=== PATIENT | male | born 1955 | race African-American/Black ===

== ENCOUNTER 2019-01-08 17:50 | Inpatient (IN) | payer MEDICARE, MEDICAID ==
[~2019-01-08] VITALS: Ht 170.2 cm; Wt 65.3 kg
[2019-01-08] MEDS ORDERED: SODIUM CHLORIDE 0.9% 1,000 ML IV ONE (18:19)
[2019-01-08 19:15] LABS: BASOPHILS % 0.3 % (0.0-2.0); EOSINOPHILS % 0.3 % (0.0-5.0); HEMATOCRIT. 47.1 % (42.0-52.0); HEMOGLOBIN. 16.2 g/dL (14.0-18.0); LYMPHOCYTES % 13.4 % (20.0-50.0); MEAN CORPUSCULAR HEMOGLOBIN 31.5 pg (28.0-32.0); MEAN CORPUSCULAR VOLUME 91.4 fL (80.0-94.0); MONOCYTES % 10.3 % (2.0-8.0); NEUTROPHILS % 75.7 % (40.0-76.0); PLATELET 260 x1000/uL (130-400); RED BLOOD CELL COUNT 5.15 mill/uL (4.7-6.1); RED CELL DISTRIBUTION WIDTH 14.1 % (11.6-14.6)
[2019-01-08 19:17] LABS: CHLORIDE 105 mEq/L (98-107)
[2019-01-08 19:18] LABS: INR 1.1; PROTHROMBIN TIME 10.6 sec (9.1-11.1)
[2019-01-08 19:40] LABS: CLARITY URINE CLEAR (CLEAR); COLOR URINE YELLOW (YELLOW); KETONES URINE NEGATIVE (NEGATIVE); LEUKOCYTE ESTERASE URINE NEGATIVE (NEGATIVE); NITRITE URINE NEGATIVE (NEGATIVE); OCCULT BLOOD URINE NEGATIVE (NEGATIVE); PH URINE 7.5 (4.5-8.0); PROTEIN URINE NEGATIVE (NEGATIVE); SPECIFIC GRAVITY URINE 1.012 (1.005-1.030); UROBILINOGEN URINE 0.2 E.U./dL (0.2-1.0)
[2019-01-08] MEDS ORDERED: POTASSIUM CHLORIDE 20MEQ TABLET SR PO ONE (19:45)
[2019-01-08] MEDS ORDERED: CLONIDINE 0.1MG TABLET PO PRN (21:15)
[2019-01-08] MEDS ORDERED: DOCUSATE SODIUM 100MG CAPSULE PO PRN (21:15)
[2019-01-08] MEDS ORDERED: ACETAMINOPHEN 325MG TABLET PO PRN (21:15)
[2019-01-08] MEDS ORDERED: ZOLPIDEM TARTRATE 5MG TABLET PO PRN (21:15)
[2019-01-08] MEDS ORDERED: MAGNESIUM/ALUMINUM HYDROXIDE/SIMETHICONE 30ML UDC PO PRN (21:15)
[2019-01-08] MEDS ORDERED: NITROGLYCERIN 0.4MG TABLET SL SL PRN (21:15)
[2019-01-08] MEDS ORDERED: NA PHOS,M-B/NA PHOS,DI-BA ENEMA 118ML PR PRN (21:15)
[2019-01-08] MEDS ORDERED: POTASSIUM CHLORIDE 20MEQ TABLET SR PO NR (21:15)
[2019-01-08] MEDS ORDERED: IPRATROPIUM/ALBUTEROL 0.5-3(2.5)MG/3ML NEB INH PRN (21:15)
[2019-01-08] MEDS ORDERED: TRAMADOL 50MG TABLET PO PRN (21:15)
[2019-01-08] MEDS ORDERED: ONDANSETRON HCL 4MG/2ML INJ IV PRN (21:15)
[2019-01-08 22:01] LABS: ETHANOL BLOOD < 10 mg/dL
[2019-01-08 22:04] LABS: LDL CHOLESTEROL 79 mg/dL (5-100)
[2019-01-08 22:05] LABS: HDL CHOLESTEROL 59 mg/dL (40-59)
[2019-01-08 22:06] LABS: T4 FREE 1.05 ng/dL (0.76-1.46)
[2019-01-08] MEDS: SODIUM CHLORIDE 0.9% 1,000 ML IV SCH (22:29)
[2019-01-09 00:50] LABS: CREATINE KINASE 538 IU/L (39-308)
[2019-01-09 00:51] LABS: CREATINE KINASE MB FRACTION 7.1 ng/mL (0.5-3.6)
[2019-01-09 06:34] LABS: CREATINE KINASE 474 IU/L (39-308)
[2019-01-09 06:35] LABS: CREATINE KINASE MB FRACTION 5.5 ng/mL (0.5-3.6)
[2019-01-09 09:24] LABS: *BARBITURATES SCREEN URINE NEGATIVE (NEGATIVE); *BENZODIAZEPINES SCREEN URINE NEGATIVE (NEGATIVE); *COCAINE SCREEN URINE NEGATIVE (NEGATIVE)
[2019-01-09 09:25] LABS: CANNABINOID URINE SCREEN NEGATIVE (NEGATIVE); METHADONE URINE SCREEN NEGATIVE (NEGATIVE); OPIATES URINE SCREEN NEGATIVE (NEGATIVE); PHENCYCLIDINE URINE SCREEN NEGATIVE (NEGATIVE)
[2019-01-09 09:26] LABS: *AMPHETAMINES SCREEN URINE NEGATIVE (NEGATIVE)
[2019-01-09 09:40] VITALS: BP 116/83
[2019-01-09] MEDS: FAMOTIDINE 20MG TABLET PO SCH ×2 (13:15→21:40)
[2019-01-09] MEDS: ASPIRIN 325MG EC TABLET PO SCH (13:15)
[2019-01-09] MEDS: ENOXAPARIN 40MG/0.4ML SYR SUBCUT SCH ×2 (13:16→13:21)
[2019-01-09] MEDS: SODIUM CHLORIDE 0.9% 1,000 ML IV SCH (15:36)
[2019-01-09 15:44] VITALS: BP 116/83
[2019-01-09 16:00] VITALS: BP_SYST 103; BP_SYST 106; BP_SYST 128; BP_DIAS 77; BP_DIAS 82; BP_DIAS 97
[2019-01-09 20:00] VITALS: BP_SYST 115; BP_SYST 123; BP_SYST 143; BP_DIAS 105; BP_DIAS 74; BP_DIAS 81
[2019-01-09] MEDS: GUAIFENESIN 200MG/10ML SUGAR FREE UDC PO PRN (21:54)
[2019-01-10] VITALS: BP 119/76
[2019-01-10 04:16] VITALS: BP 107/68
[2019-01-10] MEDS: SODIUM CHLORIDE 0.9% 1,000 ML IV SCH ×2 (06:31→14:30)
[2019-01-10 08:00] VITALS: BP 122/79
[2019-01-10] MEDS: FAMOTIDINE 20MG TABLET PO SCH ×2 (09:13→21:03)
[2019-01-10] MEDS: ASPIRIN 325MG EC TABLET PO SCH (09:13)
[2019-01-10] MEDS: ENOXAPARIN 40MG/0.4ML SYR SUBCUT SCH (09:14)
[2019-01-10] MEDS: POLYVINYL ALCOHOL OPHTH DROPS 15ML BOTHEYE SCH ×2 (13:00→18:36)
[2019-01-10 16:56] VITALS: BP 104/66
[2019-01-10 17:45] LABS: C REACTIVE PROTEIN CARDIAC 3.8 mg/L (0.00-3.00)
[2019-01-10 17:49] LABS: CREATINE KINASE MB FRACTION 3.8 ng/mL (0.5-3.6)
[2019-01-10 20:00] VITALS: BP_SYST 121; BP_SYST 130; BP_SYST 141; BP_DIAS 77; BP_DIAS 96
[2019-01-10] MEDS: GUAIFENESIN 200MG/10ML SUGAR FREE UDC PO PRN (23:34)
[2019-01-11] VITALS (8 sets, daily range): BP systolic 99–141; BP diastolic 52–78
[2019-01-11] MEDS: SODIUM CHLORIDE 0.9% 1,000 ML IV SCH ×2 (05:06→17:10)
[2019-01-11] MEDS: ASPIRIN 325MG EC TABLET PO SCH (09:31)
[2019-01-11] MEDS: FAMOTIDINE 20MG TABLET PO SCH ×2 (09:31→21:47)
[2019-01-11] MEDS: POLYVINYL ALCOHOL OPHTH DROPS 15ML BOTHEYE SCH ×3 (09:32→18:08)
[2019-01-11] MEDS: ENOXAPARIN 40MG/0.4ML SYR SUBCUT SCH (09:33)
[2019-01-11] MEDS ORDERED: IOHEXOL-300 100 ML BOTTLE ONE (13:38)
[2019-01-11 15:43] LABS: T4 FREE 0.9 ng/dL (0.76-1.46)
[2019-01-11] MEDS: GUAIFENESIN 200MG/10ML SUGAR FREE UDC PO PRN (23:26)
[2019-01-12] VITALS (7 sets, daily range): BP systolic 96–132; BP diastolic 57–91
[2019-01-12] MEDS: SODIUM CHLORIDE 0.9% 1,000 ML IV SCH ×2 (05:29→17:46)
[2019-01-12] MEDS: GUAIFENESIN 200MG/10ML SUGAR FREE UDC PO PRN ×2 (08:24→20:59)
[2019-01-12] MEDS: ASPIRIN 325MG EC TABLET PO SCH (08:24)
[2019-01-12] MEDS: POLYVINYL ALCOHOL OPHTH DROPS 15ML BOTHEYE SCH ×3 (08:24→17:34)
[2019-01-12] MEDS: FAMOTIDINE 20MG TABLET PO SCH ×2 (08:24→20:59)
[2019-01-12] MEDS: ENOXAPARIN 40MG/0.4ML SYR SUBCUT SCH (10:19)
[2019-01-12] MEDS: NYSTATIN POWDER 15GM TOP SCH ×2 (13:20→17:35)
[2019-01-13 04:00] VITALS: BP_SYST 108; BP_SYST 120; BP_DIAS 74; BP_DIAS 81
[2019-01-13] MEDS: GUAIFENESIN 200MG/10ML SUGAR FREE UDC PO PRN ×2 (05:32→17:57)
[2019-01-13] MEDS: POLYVINYL ALCOHOL OPHTH DROPS 15ML BOTHEYE SCH ×3 (10:14→17:50)
[2019-01-13] MEDS: NYSTATIN POWDER 15GM TOP SCH ×3 (10:14→17:51)
[2019-01-13] MEDS: ASPIRIN 325MG EC TABLET PO SCH (10:14)
[2019-01-13] MEDS: FAMOTIDINE 20MG TABLET PO SCH ×2 (10:14→20:58)
[2019-01-13 11:04] LABS: CREATINE KINASE 200 IU/L (39-308)
[2019-01-13 11:11] VITALS: BP 104/71
[2019-01-13] MEDS: ENOXAPARIN 40MG/0.4ML SYR SUBCUT SCH (13:38)
[2019-01-13 20:00] VITALS: BP_SYST 110; BP_SYST 112; BP_SYST 122; BP_DIAS 74; BP_DIAS 82; BP_DIAS 85
[2019-01-13] MEDS: SODIUM CHLORIDE 0.9% 1,000 ML IV SCH (21:38)
[2019-01-14] VITALS: BP 105/73
[2019-01-14 04:00] VITALS: BP 96/60
[2019-01-14 08:00] VITALS: BP_SYST 105; BP_SYST 112; BP_SYST 128; BP_DIAS 75; BP_DIAS 83; BP_DIAS 93
[2019-01-14 12:00] VITALS: BP 115/70
[2019-01-14] MEDS: POLYVINYL ALCOHOL OPHTH DROPS 15ML BOTHEYE SCH ×3 (12:42→18:04)
[2019-01-14] MEDS: FAMOTIDINE 20MG TABLET PO SCH (12:42)
[2019-01-14] MEDS: ASPIRIN 325MG EC TABLET PO SCH (12:42)
[2019-01-14] MEDS: ENOXAPARIN 40MG/0.4ML SYR SUBCUT SCH (12:43)
[2019-01-14] MEDS: NYSTATIN POWDER 15GM TOP SCH ×3 (12:44→18:04)
[2019-01-14] MEDS: GUAIFENESIN 200MG/10ML SUGAR FREE UDC PO PRN ×2 (12:47→18:55)
[2019-01-14 15:26] LABS: HEMATOCRIT. 46.4 % (42.0-52.0); HEMOGLOBIN. 15.9 g/dL (14.0-18.0); MEAN CORPUSCULAR HEMOGLOBIN 31.5 pg (28.0-32.0); MEAN CORPUSCULAR VOLUME 91.7 fL (80.0-94.0); MEAN PLATELET VOLUME 7.5 fl (7.4-10.4); PLATELET 230 x1000/uL (130-400); RED BLOOD CELL COUNT 5.06 mill/uL (4.7-6.1); RED CELL DISTRIBUTION WIDTH 14.4 % (11.6-14.6)
[2019-01-14 15:27] LABS: CHLORIDE 107 mEq/L (98-107)
[2019-01-14 16:00] VITALS: BP 111/73
[2019-01-14 16:18] LABS: PLATELET ESTIMATE NORMAL
[2019-01-14 17:41] VITALS: BP 111/73
[2019-01-16 13:06] LABS: AChR BLOCKING ABS SERUM 17 % (0-25)
== END 2019-01-14 20:05 | DRG 74 ==
LOC: ER 17:50 → EDBEDREQTM 20:32 → EDBEDREQ 20:32 → SUPCPDRO 21:05 → 6WST 21:30 → ENRESERV 01-09 07:06
PROVIDERS: ADMIT Internal Medicine; ATTEND Internal Medicine
DX: G90.8 Other disorders of autonomic nervous system (principal); M62.82 Rhabdomyolysis; E44.1 Mild protein-calorie malnutrition; G95.20 Unspecified cord compression; E87.6 Hypokalemia; G93.89 Other specified disorders of brain; M48.02 Spinal stenosis, cervical region; M50.321 Other cervical disc degeneration at C4-C5 level; M47.814 Spondylosis without myelopathy or radiculopathy, thoracic region; M43.17 Spondylolisthesis, lumbosacral region; R26.2 Difficulty in walking, not elsewhere classified; M51.37 Other intervertebral disc degeneration, lumbosacral region; M47.816 Spondylosis without myelopathy or radiculopathy, lumbar region; D63.8 Anemia in other chronic diseases classified elsewhere; K11.1 Hypertrophy of salivary gland; M48.07 Spinal stenosis, lumbosacral region; M51.34 Other intervertebral disc degeneration, thoracic region; Z53.20 Procedure and treatment not carried out because of patient's decision for unspecified reasons; Z86.73 Personal history of transient ischemic attack (TIA), and cerebral infarction without residual deficits; Z68.22 Body mass index [BMI] 22.0-22.9, adult
CPT/HCPCS: 36415; 70491; 70544; 70551; 71045; 71260; 72141; 72146; 72148; 74160; 80061; 80305; 82550; 82553; 82962; 83036; 83519; 84439; 84443; 84481; 84484; 85651; 86141; 92610; 93005; 93306; 93880; 93970; 96365; 96375; 97112; 97116; 97162; 97166; 97530; 97535; 99285; C1893; J1650; J7030; Q9967

== ENCOUNTER 2019-01-14 20:08 | Inpatient (IN) | payer MEDICARE, MEDICAID ==
[~2019-01-14] VITALS: Ht 167.6 cm; Wt 65.8 kg
[2019-01-14 20:08] VITALS: BP 115/84
[2019-01-14 20:15] VITALS: BP 115/84
[2019-01-14] MEDS ORDERED: ONDANSETRON HCL 4MG/2ML INJ IV PRN (21:30)
[2019-01-14] MEDS ORDERED: MAGNESIUM/ALUMINUM HYDROXIDE/SIMETHICONE 30ML UDC PO PRN (21:30)
[2019-01-14] MEDS ORDERED: NA PHOS,M-B/NA PHOS,DI-BA ENEMA 118ML PR PRN (21:30)
[2019-01-14] MEDS ORDERED: ACETAMINOPHEN 325MG TABLET PO PRN ×2 (21:30→23:15)
[2019-01-14] MEDS ORDERED: DOCUSATE SODIUM 100MG CAPSULE PO PRN (21:30)
[2019-01-14] MEDS ORDERED: NITROGLYCERIN 0.4MG TABLET SL SL PRN (21:30)
[2019-01-14] MEDS ORDERED: IPRATROPIUM/ALBUTEROL 0.5-3(2.5)MG/3ML NEB HHN PRN (21:30)
[2019-01-14] MEDS ORDERED: CLONIDINE 0.1MG TABLET PO PRN (21:30)
[2019-01-15 07:01] LABS: CHLORIDE 107 mEq/L (98-107)
[2019-01-15 07:13] LABS: HEMATOCRIT. 42.5 % (42.0-52.0); HEMOGLOBIN. 14.8 g/dL (14.0-18.0); MEAN CORPUSCULAR HEMOGLOBIN 31.7 pg (28.0-32.0); MEAN PLATELET VOLUME 7.3 fl (7.4-10.4); PLATELET 238 x1000/uL (130-400); RED BLOOD CELL COUNT 4.67 mill/uL (4.7-6.1); RED CELL DISTRIBUTION WIDTH 13.9 % (11.6-14.6)
[2019-01-15] MEDS: ASPIRIN 325MG EC TABLET PO SCH (08:41)
[2019-01-15] MEDS: FAMOTIDINE 20MG TABLET PO SCH ×2 (08:41→20:13)
[2019-01-15] MEDS: POLYVINYL ALCOHOL OPHTH DROPS 15ML BOTHEYE SCH ×3 (08:42→16:52)
[2019-01-15] MEDS: NYSTATIN POWDER 15GM TOP SCH ×3 (08:42→16:51)
[2019-01-15 08:47] VITALS: BP 102/63
[2019-01-15] MEDS: ENOXAPARIN 40MG/0.4ML SYR SUBCUT SCH (11:22)
[2019-01-15 13:49] LABS: PLATELET ESTIMATE NORMAL
[2019-01-15] MEDS ORDERED: ONDANSETRON 4MG ODT PO PRN (16:00)
[2019-01-15 20:00] VITALS: BP 108/71
[2019-01-15] MEDS: GUAIFENESIN 200MG/10ML SUGAR FREE UDC PO PRN (21:19)
[2019-01-16 07:04] LABS: CHLORIDE 104 mEq/L (98-107)
[2019-01-16 07:08] LABS: HEMOGLOBIN. 15.3 g/dL (14.0-18.0); MEAN CORPUSCULAR HEMOGLOBIN 30.9 pg (28.0-32.0); MEAN CORPUSCULAR VOLUME 90.8 fL (80.0-94.0); MEAN PLATELET VOLUME 7.4 fl (7.4-10.4); PLATELET 269 x1000/uL (130-400); RED BLOOD CELL COUNT 4.95 mill/uL (4.7-6.1); RED CELL DISTRIBUTION WIDTH 14.4 % (11.6-14.6)
[2019-01-16 07:11] LABS: PROSTRATE SPECIFIC AG TOTAL 0.74 ng/mL (0.0-4.0)
[2019-01-16 07:24] LABS: CREATINE KINASE 177 IU/L (39-308)
[2019-01-16 07:25] LABS: T4 FREE 0.98 ng/dL (0.76-1.46)
[2019-01-16 08:20] LABS: TOTAL IRON BINDING CAPACITY 336 ug/dL (250-450)
[2019-01-16 08:56] VITALS: BP 100/72
[2019-01-16] MEDS: ASPIRIN 325MG EC TABLET PO SCH (10:43)
[2019-01-16] MEDS: FAMOTIDINE 20MG TABLET PO SCH ×3 (10:44→20:33)
[2019-01-16] MEDS: POLYVINYL ALCOHOL OPHTH DROPS 15ML BOTHEYE SCH ×3 (10:57→18:10)
[2019-01-16] MEDS: NYSTATIN POWDER 15GM TOP SCH ×3 (10:58→18:10)
[2019-01-16] MEDS ORDERED: BISACODYL 5MG TABLET PO PRN (11:15)
[2019-01-16] MEDS: ENOXAPARIN 40MG/0.4ML SYR SUBCUT SCH (11:40)
[2019-01-16 14:17] LABS: PLATELET ESTIMATE NORMAL
[2019-01-16 18:52] LABS: CLARITY URINE CLEAR (CLEAR); COLOR URINE YELLOW (YELLOW); KETONES URINE NEGATIVE (NEGATIVE); LEUKOCYTE ESTERASE URINE NEGATIVE (NEGATIVE); NITRITE URINE NEGATIVE (NEGATIVE); OCCULT BLOOD URINE NEGATIVE (NEGATIVE); PROTEIN URINE NEGATIVE (NEGATIVE); UROBILINOGEN URINE 0.2 E.U./dL (0.2-1.0)
[2019-01-16 20:00] VITALS: BP 109/65
[2019-01-16] MEDS: GUAIFENESIN 200MG/10ML SUGAR FREE UDC PO PRN (20:33)
[2019-01-16] MEDS: LACTULOSE 20G/30ML UDC PO SCH (21:09)
[2019-01-16] MEDS: MUPIROCIN 2% OINT 22GM NS SCH (21:57)
[2019-01-17 05:54] LABS: HEMATOCRIT. 43.1 % (42.0-52.0); HEMOGLOBIN. 14.9 g/dL (14.0-18.0); MEAN CORPUSCULAR HEMOGLOBIN 31.5 pg (28.0-32.0); MEAN CORPUSCULAR VOLUME 91.1 fL (80.0-94.0); MEAN PLATELET VOLUME 7.2 fl (7.4-10.4); PLATELET 256 x1000/uL (130-400); RED BLOOD CELL COUNT 4.73 mill/uL (4.7-6.1); RED CELL DISTRIBUTION WIDTH 13.9 % (11.6-14.6)
[2019-01-17] MEDS: LACTULOSE 20G/30ML UDC PO SCH ×3 (06:00→21:05)
[2019-01-17 06:33] LABS: T4 FREE 0.93 ng/dL (0.76-1.46)
[2019-01-17 08:00] VITALS: BP 110/75
[2019-01-17] MEDS: FAMOTIDINE 20MG TABLET PO SCH ×2 (08:54→21:05)
[2019-01-17] MEDS: POLYVINYL ALCOHOL OPHTH DROPS 15ML BOTHEYE SCH ×3 (08:54→17:07)
[2019-01-17] MEDS: NYSTATIN POWDER 15GM TOP SCH ×3 (08:54→17:07)
[2019-01-17] MEDS: MUPIROCIN 2% OINT 22GM NS SCH ×2 (08:54→21:05)
[2019-01-17] MEDS: ASPIRIN 325MG EC TABLET PO SCH (08:54)
[2019-01-17] MEDS: ENOXAPARIN 40MG/0.4ML SYR SUBCUT SCH (12:00)
[2019-01-17] MEDS: GUAIFENESIN 200MG/10ML SUGAR FREE UDC PO PRN (19:31)
[2019-01-17 20:00] VITALS: BP 112/74
[2019-01-18 02:42] LABS: PLATELET ESTIMATE NORMAL
[2019-01-18] MEDS: LACTULOSE 20G/30ML UDC PO SCH ×3 (06:00→21:13)
[2019-01-18 08:00] VITALS: BP 116/86
[2019-01-18] MEDS: POLYVINYL ALCOHOL OPHTH DROPS 15ML BOTHEYE SCH ×3 (08:55→17:41)
[2019-01-18] MEDS: MUPIROCIN 2% OINT 22GM NS SCH ×2 (08:56→20:30)
[2019-01-18] MEDS: ASPIRIN 325MG EC TABLET PO SCH (08:57)
[2019-01-18] MEDS: FAMOTIDINE 20MG TABLET PO SCH ×2 (08:57→20:30)
[2019-01-18] MEDS: NYSTATIN POWDER 15GM TOP SCH ×3 (08:57→17:41)
[2019-01-18] MEDS: GUAIFENESIN 200MG/10ML SUGAR FREE UDC PO PRN ×2 (09:08→13:55)
[2019-01-18] MEDS: ENOXAPARIN 40MG/0.4ML SYR SUBCUT SCH (12:18)
[2019-01-18] MEDS: LEVOFLOXACIN 500MG TABLET PO SCH (17:43)
[2019-01-18 20:00] VITALS: BP 112/75
[2019-01-19] MEDS: LACTULOSE 20G/30ML UDC PO SCH ×4 (05:26→14:28)
[2019-01-19 08:00] VITALS: BP 119/83
[2019-01-19] MEDS: FAMOTIDINE 20MG TABLET PO SCH ×2 (09:17→21:37)
[2019-01-19] MEDS: NYSTATIN POWDER 15GM TOP SCH ×3 (09:18→16:55)
[2019-01-19] MEDS: POLYVINYL ALCOHOL OPHTH DROPS 15ML BOTHEYE SCH ×3 (09:18→16:55)
[2019-01-19] MEDS: MUPIROCIN 2% OINT 22GM NS SCH ×2 (09:21→21:36)
[2019-01-19] MEDS: ASPIRIN 325MG EC TABLET PO SCH (09:21)
[2019-01-19] MEDS: LEVOFLOXACIN 500MG TABLET PO SCH (11:03)
[2019-01-19] MEDS: ENOXAPARIN 40MG/0.4ML SYR SUBCUT SCH (11:04)
[2019-01-19 20:00] VITALS: BP 114/76
[2019-01-20 08:00] VITALS: BP 110/76
[2019-01-20] MEDS: MUPIROCIN 2% OINT 22GM NS SCH ×2 (08:33→22:29)
[2019-01-20] MEDS: NYSTATIN POWDER 15GM TOP SCH ×3 (08:33→17:23)
[2019-01-20] MEDS: FAMOTIDINE 20MG TABLET PO SCH ×2 (08:33→22:28)
[2019-01-20] MEDS: ASPIRIN 325MG EC TABLET PO SCH (08:33)
[2019-01-20] MEDS: POLYVINYL ALCOHOL OPHTH DROPS 15ML BOTHEYE SCH ×3 (08:33→17:22)
[2019-01-20] MEDS: LEVOFLOXACIN 500MG TABLET PO SCH (10:28)
[2019-01-20] MEDS: ENOXAPARIN 40MG/0.4ML SYR SUBCUT SCH (10:28)
[2019-01-20] MEDS: LACTULOSE 20G/30ML UDC PO PRN (12:07)
[2019-01-20] MEDS: GUAIFENESIN 200MG/10ML SUGAR FREE UDC PO PRN (17:29)
[2019-01-20 20:00] VITALS: BP 117/74
[2019-01-21 08:04] VITALS: BP 101/66
[2019-01-21] MEDS: FAMOTIDINE 20MG TABLET PO SCH ×2 (08:24→20:15)
[2019-01-21] MEDS: ASPIRIN 325MG EC TABLET PO SCH (08:24)
[2019-01-21] MEDS: POLYVINYL ALCOHOL OPHTH DROPS 15ML BOTHEYE SCH ×3 (08:25→17:00)
[2019-01-21] MEDS: NYSTATIN POWDER 15GM TOP SCH ×3 (08:27→17:00)
[2019-01-21] MEDS: MUPIROCIN 2% OINT 22GM NS SCH (09:00)
[2019-01-21] MEDS: ENOXAPARIN 40MG/0.4ML SYR SUBCUT SCH ×2 (11:00→11:15)
[2019-01-21] MEDS: LEVOFLOXACIN 500MG TABLET PO SCH ×2 (11:00→11:15)
[2019-01-21 20:00] VITALS: BP 106/76
[2019-01-21] MEDS: GUAIFENESIN 200MG/10ML SUGAR FREE UDC PO PRN (20:20)
[2019-01-22 08:00] VITALS: BP 102/73
[2019-01-22] MEDS: FAMOTIDINE 20MG TABLET PO SCH ×2 (09:27→20:47)
[2019-01-22] MEDS: ASPIRIN 325MG EC TABLET PO SCH (09:27)
[2019-01-22] MEDS: NYSTATIN POWDER 15GM TOP SCH ×3 (09:31→17:59)
[2019-01-22] MEDS: POLYVINYL ALCOHOL OPHTH DROPS 15ML BOTHEYE SCH ×3 (09:31→17:59)
[2019-01-22] MEDS: ENOXAPARIN 40MG/0.4ML SYR SUBCUT SCH (11:00)
[2019-01-22 15:07] LABS: 25-HYDROXY VITAMIN D3 17 ng/mL (.)
[2019-01-22] MEDS ORDERED: ERGOCALCIFEROL 50000UNITS CAPSULE PO SCH (17:30)
[2019-01-22 20:00] VITALS: BP 109/52
[2019-01-22] MEDS: LACTULOSE 20G/30ML UDC PO PRN (20:47)
[2019-01-23 08:26] VITALS: BP 112/76
[2019-01-23] MEDS: FAMOTIDINE 20MG TABLET PO SCH ×2 (09:00→21:00)
[2019-01-23] MEDS: ASPIRIN 325MG EC TABLET PO SCH (09:00)
[2019-01-23] MEDS: NYSTATIN POWDER 15GM TOP SCH ×3 (09:44→17:00)
[2019-01-23] MEDS: POLYVINYL ALCOHOL OPHTH DROPS 15ML BOTHEYE SCH ×3 (09:44→17:00)
[2019-01-23] MEDS: ENOXAPARIN 40MG/0.4ML SYR SUBCUT SCH (11:00)
[2019-01-23 20:00] VITALS: BP 118/86
[2019-01-23] MEDS: GUAIFENESIN 200MG/10ML SUGAR FREE UDC PO PRN (20:59)
[2019-01-23] MEDS ORDERED: ATORVASTATIN CALCIUM 10MG TABLET PO SCH (21:00)
[2019-01-24 08:17] VITALS: BP 103/71
[2019-01-24] MEDS: ASPIRIN 325MG EC TABLET PO SCH (08:30)
[2019-01-24] MEDS: NYSTATIN POWDER 15GM TOP SCH (08:30)
[2019-01-24] MEDS: POLYVINYL ALCOHOL OPHTH DROPS 15ML BOTHEYE SCH (08:31)
[2019-01-24] MEDS: FAMOTIDINE 20MG TABLET PO SCH (08:31)
[2019-01-24] MEDS: ENOXAPARIN 40MG/0.4ML SYR SUBCUT SCH (11:07)
[2019-01-24] MEDS ORDERED: CHOL100053 PO (12:02)
[2019-01-24] MEDS ORDERED: ATOR10TA MT (12:04)
[2019-01-24] MEDS ORDERED: ASA5EC PO (12:05)
[2019-01-24 12:08] VITALS: BP 121/47
== END 2019-01-24 18:00 | disposition home health service (06) | DRG 558 ==
PROVIDERS: ADMIT Physical Medicine & Rehabilitation Spinal Cord Injury Medicine; ATTEND Internal Medicine
DX: M62.82 Rhabdomyolysis (principal); E44.0 Moderate protein-calorie malnutrition; G93.40 Encephalopathy, unspecified; N39.0 Urinary tract infection, site not specified; E72.20 Disorder of urea cycle metabolism, unspecified; R55 Syncope and collapse; G93.89 Other specified disorders of brain; M48.02 Spinal stenosis, cervical region; M47.816 Spondylosis without myelopathy or radiculopathy, lumbar region; R53.81 Other malaise; R26.9 Unspecified abnormalities of gait and mobility; M79.609 Pain in unspecified limb; D63.8 Anemia in other chronic diseases classified elsewhere; M43.16 Spondylolisthesis, lumbar region; E87.6 Hypokalemia; E53.8 Deficiency of other specified B group vitamins; M47.814 Spondylosis without myelopathy or radiculopathy, thoracic region; I65.21 Occlusion and stenosis of right carotid artery; M50.31 Other cervical disc degeneration, high cervical region; D72.819 Decreased white blood cell count, unspecified; G58.9 Mononeuropathy, unspecified; E55.9 Vitamin D deficiency, unspecified; Z68.23 Body mass index [BMI] 23.0-23.9, adult; Z86.73 Personal history of transient ischemic attack (TIA), and cerebral infarction without residual deficits; K11.1 Hypertrophy of salivary gland; M48.07 Spinal stenosis, lumbosacral region
CPT/HCPCS: 36415; 80048; 82140; 82306; 82550; 82607; 82728; 82746; 83036; 83540; 83550; 83735; 84134; 84153; 84439; 84443; 84481; 87077; 87186; 92523; 93005; 93970; 97110; 97112; 97116; 97150; 97162; 97166; 97530; 97535; G0515; J1650; J7620; G0103

== ENCOUNTER 2019-02-18 05:24 | Inpatient (IN) | payer MEDICARE, MEDICAID ==
[2019-02-18] VITALS (58 sets, daily range): BP systolic 52–127; BP diastolic 33–83
[~2019-02-18] VITALS: Ht 167.6 cm; Wt 66.0 kg
[2019-02-18] MEDS ORDERED: LIDOCAINE HCL/EPINEPHRINE 1%-EPI 1:100,000 20 ML VIAL ONE (06:15)
[2019-02-18] MEDS ORDERED: NORMAL SALINE 0.9% 10 ML SYR ONE (06:15)
[2019-02-18] MEDS ORDERED: THROMBIN (BOVINE) 5000 UNITS/VIAL TOP ONE ×2 (06:15→06:16)
[2019-02-18] MEDS ORDERED: BACITRACIN 50,000 UNITS/VIAL ONE (06:16)
[2019-02-18 06:47] LABS: CLARITY URINE CLEAR (CLEAR); COLOR URINE YELLOW (YELLOW); KETONES URINE NEGATIVE (NEGATIVE); LEUKOCYTE ESTERASE URINE NEGATIVE (NEGATIVE); NITRITE URINE NEGATIVE (NEGATIVE); OCCULT BLOOD URINE NEGATIVE (NEGATIVE); PROTEIN URINE NEGATIVE (NEGATIVE); SPECIFIC GRAVITY URINE 1.011 (1.005-1.030); UROBILINOGEN URINE 0.2 E.U./dL (0.2-1.0)
[2019-02-18] MEDS: LACTATED RINGERS 1,000 ML IV SCH ×2 (07:28→07:30)
[2019-02-18] MEDS ORDERED: ONDANSETRON HCL 4MG/2ML INJ IV PRN (09:15)
[2019-02-18] MEDS ORDERED: HYDROCODONE/APAP 7.5/325MG 1 TAB TABLET PO PRN (09:15)
[2019-02-18] MEDS ORDERED: MORPHINE SULFATE 4 MG/ML CPJ (NOT FOR IM USE) IV PRN (09:15)
[2019-02-18] MEDS ORDERED: NICARDIPINE 100 MG in SODIUM CHLORIDE 0.9% 60 ML IV PRN (09:15)
[2019-02-18] MEDS ORDERED: LACTATED RINGERS 1,000 ML IV ONE ×2 (09:45→10:29)
[2019-02-18] MEDS: DEXT 5%/LACTATED RINGERS 1,000 ML IV SCH ×2 (10:29→18:32)
[2019-02-18] MEDS ORDERED: DIPHENHYDRAMINE INJ IV PRN (10:30)
[2019-02-18] MEDS ORDERED: NALOXONE INJ IV PRN (10:30)
[2019-02-18] MEDS ORDERED: ONDANSETRON INJ IV PRN (10:45)
[2019-02-18] MEDS ORDERED: LACTATED RINGERS 1,000 ML IV NR (11:00)
[2019-02-18] MEDS: MORPHINE PCA 50MG/50ML IV PRN (11:11)
[2019-02-18] MEDS ORDERED: BISACODYL 5MG TABLET PO PRN (12:30)
[2019-02-18] MEDS ORDERED: CEFAZOLIN SODIUM 1000MG/VIAL IV SCH (14:00)
[2019-02-18] MEDS: CEFAZOLIN 1000MG PREMIX 50 ML IV SCH ×2 (14:52→21:33)
[2019-02-18] MEDS: DOCUSATE SODIUM 100MG CAPSULE PO SCH (18:31)
[2019-02-19] VITALS (93 sets, daily range): BP systolic 86–140; BP diastolic 44–86
[2019-02-19] MEDS: DEXT 5%/LACTATED RINGERS 1,000 ML IV SCH ×3 (03:04→20:17)
[2019-02-19 06:00] LABS: HEMATOCRIT. 37.6 % (42.0-52.0); HEMOGLOBIN. 12.9 g/dL (14.0-18.0); MEAN CORPUSCULAR HEMOGLOBIN 31.5 pg (28.0-32.0); MEAN CORPUSCULAR VOLUME 91.7 fL (80.0-94.0); MEAN PLATELET VOLUME 7.6 fl (7.4-10.4); PLATELET 189 x1000/uL (130-400); RED CELL DISTRIBUTION WIDTH 13.8 % (11.6-14.6)
[2019-02-19] MEDS: CEFAZOLIN 1000MG PREMIX 50 ML IV SCH ×3 (06:08→21:21)
[2019-02-19 06:10] LABS: CHLORIDE 106 mEq/L (98-107)
[2019-02-19 07:03] LABS: PLATELET ESTIMATE NORMAL
[2019-02-19] MEDS: DOCUSATE SODIUM 100MG CAPSULE PO SCH ×2 (09:00→17:00)
[2019-02-19] MEDS ORDERED: SODIUM CHLORIDE 0.9% 500 ML IV SCH (09:30)
[2019-02-19] MEDS ORDERED: DEXTROSE 50% WATER 50ML SYRINGE IV PRN (18:45)
[2019-02-19] MEDS: INSULIN LISPRO 100 UNITS/ML SUBCUT SCH (21:00)
[2019-02-19] MEDS: BLOOD SUGAR DIAGNOSTIC STRIP TEST SCH (21:29)
[2019-02-20] VITALS (61 sets, daily range): BP systolic 96–141; BP diastolic 22–115
[2019-02-20] MEDS: CEFAZOLIN 1000MG PREMIX 50 ML IV SCH ×2 (05:06→15:19)
[2019-02-20] MEDS: DEXT 5%/LACTATED RINGERS 1,000 ML IV SCH ×2 (05:06→15:12)
[2019-02-20] MEDS: MORPHINE PCA 50MG/50ML IV PRN (05:13)
[2019-02-20] MEDS: INSULIN LISPRO 100 UNITS/ML SUBCUT SCH (06:34)
[2019-02-20] MEDS: BLOOD SUGAR DIAGNOSTIC STRIP TEST SCH (06:34)
[2019-02-20] MEDS: DOCUSATE SODIUM 100MG CAPSULE PO SCH ×2 (09:00→18:08)
[2019-02-20] MEDS: LACTULOSE 20G/30ML UDC PO SCH ×3 (15:19→21:00)
[2019-02-20] MEDS ORDERED: DOCUSATE SODIUM 100MG CAPSULE PO SCH (17:00)
[2019-02-20] MEDS: POLYVINYL ALCOHOL OPHTH DROPS 15ML BOTHEYE PRN (19:43)
[2019-02-20] MEDS: POLYETHYLENE GLYCOL 3350 (17GM) 1 DOSE PACK PO SCH (21:00)
[2019-02-21 04:00] VITALS: BP 133/92
[2019-02-21] MEDS: DEXT 5%/LACTATED RINGERS 1,000 ML IV SCH ×3 (04:57→17:26)
[2019-02-21] MEDS: POLYVINYL ALCOHOL OPHTH DROPS 15ML BOTHEYE PRN ×2 (05:20→13:36)
[2019-02-21 08:00] VITALS: BP 117/76
[2019-02-21] MEDS: DOCUSATE SODIUM 100MG CAPSULE PO SCH ×2 (08:31→17:00)
[2019-02-21] MEDS ORDERED: NA PHOS,M-B/NA PHOS,DI-BA ENEMA 118ML PR NR (12:30)
[2019-02-21] MEDS: LACTULOSE 20G/30ML UDC PO SCH ×3 (13:00→20:11)
[2019-02-21 16:00] VITALS: BP 134/82
[2019-02-21 17:35] VITALS: BP 134/82
[2019-02-21] MEDS ORDERED: NA PHOS,M-B/NA PHOS,DI-BA ENEMA 118ML PR PRN (19:00)
[2019-02-21 20:00] VITALS: BP 113/74
[2019-02-21] MEDS: POLYETHYLENE GLYCOL 3350 (17GM) 1 DOSE PACK PO SCH (20:11)
== END 2019-02-21 22:44 | DRG 459 ==
LOC: OR 05:24 → MICUSO 05:25 → 6EST 02-20 22:00
PROVIDERS: ADMIT Neurological Surgery; ATTEND Internal Medicine
PROC: 0SG3071 Fusion of Lumbosacral Joint with Autologous Tissue Substitute, Posterior Approach, Posterior Column, Open Approach (ICD-10-PCS; principal; 2019-02-18)
DX: M47.817 Spondylosis without myelopathy or radiculopathy, lumbosacral region (principal); G82.50 Quadriplegia, unspecified; M43.17 Spondylolisthesis, lumbosacral region; M48.061 Spinal stenosis, lumbar region without neurogenic claudication; D64.9 Anemia, unspecified; M48.02 Spinal stenosis, cervical region; Z82.49 Family history of ischemic heart disease and other diseases of the circulatory system; Z86.73 Personal history of transient ischemic attack (TIA), and cerebral infarction without residual deficits; R26.9 Unspecified abnormalities of gait and mobility; R73.9 Hyperglycemia, unspecified
CPT/HCPCS: 36415; 72100; 76000; 80048; 82962; 83036; 86850; 86900; 88304; 88311; 95863; 95925; 95926; 97110; 97116; 97162; 97166; 97530; 97535; C1713; J0330; J0690; J1885; J2250; J2270; J2370; J2405; J2704; J3010; J3490; J7040; J7121

== ENCOUNTER 2019-02-21 22:44 | Inpatient (IN) | payer MEDICARE, MEDICAID ==
[~2019-02-21] VITALS: Ht 167.6 cm; Wt 58.3 kg
[2019-02-21 23:00] VITALS: BP 130/86
[2019-02-22] VITALS: BP 130/86
[2019-02-22] MEDS ORDERED: NA PHOS,M-B/NA PHOS,DI-BA ENEMA 118ML PR PRN
[2019-02-22] MEDS ORDERED: NALOXONE HCL 0.4 MG/ML 1ML VIAL IV PRN
[2019-02-22] MEDS ORDERED: DIPHENHYDRAMINE 25MG CAPSULE PO PRN
[2019-02-22] MEDS ORDERED: MORPHINE SULFATE 4 MG/ML CPJ (NOT FOR IM USE) IV PRN
[2019-02-22] MEDS ORDERED: ONDANSETRON HCL 4MG TABLET PO PRN
[2019-02-22] MEDS ORDERED: BISACODYL 5MG TABLET PO PRN
[2019-02-22] MEDS: POLYVINYL ALCOHOL OPHTH DROPS 15ML BOTHEYE PRN (03:43)
[2019-02-22 06:20] LABS: HEMATOCRIT. 34.3 % (42.0-52.0); HEMOGLOBIN. 12.2 g/dL (14.0-18.0); MEAN CORPUSCULAR HEMOGLOBIN 31.9 pg (28.0-32.0); MEAN CORPUSCULAR VOLUME 89.8 fL (80.0-94.0); PLATELET 231 x1000/uL (130-400); RED BLOOD CELL COUNT 3.82 mill/uL (4.7-6.1); RED CELL DISTRIBUTION WIDTH 13.6 % (11.6-14.6)
[2019-02-22 06:31] LABS: CHLORIDE 104 mEq/L (98-107)
[2019-02-22 08:09] VITALS: BP 123/80
[2019-02-22] MEDS: HYDROCODONE/APAP 7.5/325MG 1 TAB TABLET PO PRN ×2 (08:25→16:27)
[2019-02-22] MEDS ORDERED: DOCUSATE SODIUM 100MG CAPSULE PO SCH (09:00)
[2019-02-22] MEDS ORDERED: LACTULOSE 20G/30ML UDC PO SCH (09:00)
[2019-02-22 13:48] LABS: PLATELET ESTIMATE NORMAL
[2019-02-22] MEDS: LACTULOSE 20G/30ML UDC PO SCH ×2 (14:00→17:00)
[2019-02-22] MEDS ORDERED: BISACODYL 10MG SUPP PR PRN (14:00)
[2019-02-22] MEDS: DOCUSATE SODIUM 100MG CAPSULE PO SCH (15:33)
[2019-02-22] MEDS: PANTOPRAZOLE 40MG DR TABLET PO SCH (15:33)
[2019-02-22 20:00] VITALS: BP 116/77
[2019-02-22] MEDS ORDERED: POLYETHYLENE GLYCOL 3350 (17GM) 1 DOSE PACK PO SCH (21:00)
[2019-02-22] MEDS: POLYETHYLENE GLYCOL 3350 (17GM) 1 DOSE PACK PO SCH (21:00)
[2019-02-23] MEDS: PANTOPRAZOLE 40MG DR TABLET PO SCH (06:16)
[2019-02-23] MEDS: HYDROCODONE/APAP 7.5/325MG 1 TAB TABLET PO PRN ×2 (06:38→13:57)
[2019-02-23] MEDS: POLYVINYL ALCOHOL OPHTH DROPS 15ML BOTHEYE PRN ×2 (06:39→21:25)
[2019-02-23 08:00] VITALS: BP 116/75
[2019-02-23] MEDS: DOCUSATE SODIUM 100MG CAPSULE PO SCH ×2 (09:16→17:00)
[2019-02-23] MEDS ORDERED: BISACODYL 10MG SUPP PR PRN (15:00)
[2019-02-23 16:44] LABS: CLARITY URINE CLEAR (CLEAR); COLOR URINE YELLOW (YELLOW); KETONES URINE NEGATIVE (NEGATIVE); LEUKOCYTE ESTERASE URINE NEGATIVE (NEGATIVE); NITRITE URINE NEGATIVE (NEGATIVE); OCCULT BLOOD URINE NEGATIVE (NEGATIVE); PROTEIN URINE NEGATIVE (NEGATIVE); SPECIFIC GRAVITY URINE 1.016 (1.005-1.030)
[2019-02-23 20:00] VITALS: BP 129/92
[2019-02-23] MEDS: POLYETHYLENE GLYCOL 3350 (17GM) 1 DOSE PACK PO SCH (21:00)
[2019-02-24] MEDS: PANTOPRAZOLE 40MG DR TABLET PO SCH (06:05)
[2019-02-24] MEDS: POLYVINYL ALCOHOL OPHTH DROPS 15ML BOTHEYE PRN ×2 (06:13→17:05)
[2019-02-24] MEDS: HYDROCODONE/APAP 7.5/325MG 1 TAB TABLET PO PRN ×2 (06:14→17:06)
[2019-02-24 07:52] VITALS: BP 117/75
[2019-02-24] MEDS: DOCUSATE SODIUM 100MG CAPSULE PO SCH ×2 (08:48→17:05)
[2019-02-24] MEDS: CELECOXIB 200MG CAPSULE PO SCH (17:05)
[2019-02-24 20:00] VITALS: BP 108/74
[2019-02-24] MEDS: POLYETHYLENE GLYCOL 3350 (17GM) 1 DOSE PACK PO SCH (21:00)
[2019-02-25] MEDS: POLYVINYL ALCOHOL OPHTH DROPS 15ML BOTHEYE PRN ×2 (02:04→21:31)
[2019-02-25 06:31] LABS: CHLORIDE 100 mEq/L (98-107)
[2019-02-25 06:36] LABS: HEMATOCRIT. 37.3 % (42.0-52.0); HEMOGLOBIN. 13.1 g/dL (14.0-18.0); MEAN CORPUSCULAR HEMOGLOBIN 31.3 pg (28.0-32.0); MEAN CORPUSCULAR VOLUME 89.1 fL (80.0-94.0); MEAN PLATELET VOLUME 6.5 fl (7.4-10.4); PLATELET 364 x1000/uL (130-400); RED BLOOD CELL COUNT 4.18 mill/uL (4.7-6.1); RED CELL DISTRIBUTION WIDTH 13.2 % (11.6-14.6)
[2019-02-25 06:52] LABS: CREATINE KINASE 48 IU/L (39-308)
[2019-02-25 06:53] LABS: T4 FREE 1.39 ng/dL (0.76-1.46)
[2019-02-25] MEDS: DOCUSATE SODIUM 100MG CAPSULE PO SCH ×2 (08:14→16:43)
[2019-02-25] MEDS: PANTOPRAZOLE 40MG DR TABLET PO SCH (08:14)
[2019-02-25] MEDS: CELECOXIB 200MG CAPSULE PO SCH ×2 (08:14→16:43)
[2019-02-25] MEDS: HYDROCODONE/APAP 7.5/325MG 1 TAB TABLET PO PRN ×2 (08:19→16:47)
[2019-02-25 10:42] LABS: PLATELET ESTIMATE NORMAL
[2019-02-25] MEDS ORDERED: ERGOCALCIFEROL 50000UNITS CAPSULE PO SCH (15:00)
[2019-02-25] MEDS: CYANOCOBALAMIN 1000MCG/ML VIAL IM SCH (15:03)
[2019-02-25 20:00] VITALS: BP 94/69
[2019-02-25] MEDS ORDERED: BENZONATATE 100MG CAPSULE PO PRN (20:30)
[2019-02-25] MEDS: POLYETHYLENE GLYCOL 3350 (17GM) 1 DOSE PACK PO SCH (21:28)
[2019-02-26] MEDS: PANTOPRAZOLE 40MG DR TABLET PO SCH (06:01)
[2019-02-26] MEDS: POLYVINYL ALCOHOL OPHTH DROPS 15ML BOTHEYE PRN ×2 (06:12→20:18)
[2019-02-26] MEDS: HYDROCODONE/APAP 7.5/325MG 1 TAB TABLET PO PRN (06:13)
[2019-02-26 08:00] VITALS: BP 120/70
[2019-02-26] MEDS: CYANOCOBALAMIN 1000MCG/ML VIAL IM SCH (08:55)
[2019-02-26] MEDS: CELECOXIB 200MG CAPSULE PO SCH ×2 (08:55→17:52)
[2019-02-26] MEDS: DOCUSATE SODIUM 100MG CAPSULE PO SCH ×2 (08:56→17:52)
[2019-02-26 17:11] LABS: ANTI-DNA DOUBLE STRANDED QUANT 13 IU/mL (0-9); ANTI-JO 1 ABS <0.2 AI (0.0-0.9); RNP ANTIBODY < 0.2 AI (0.0-0.9); SMITH ANTIBODY < 0.2 AI (0.0-0.9)
[2019-02-26 20:00] VITALS: BP 126/79
[2019-02-26] MEDS: POLYETHYLENE GLYCOL 3350 (17GM) 1 DOSE PACK PO SCH (20:18)
[2019-02-27] MEDS: PANTOPRAZOLE 40MG DR TABLET PO SCH (06:03)
[2019-02-27] MEDS: POLYVINYL ALCOHOL OPHTH DROPS 15ML BOTHEYE PRN ×3 (06:38→18:15)
[2019-02-27] MEDS: HYDROCODONE/APAP 7.5/325MG 1 TAB TABLET PO PRN ×3 (06:39→18:17)
[2019-02-27 08:00] VITALS: BP 117/40
[2019-02-27] MEDS: CYANOCOBALAMIN 1000MCG/ML VIAL IM SCH (08:39)
[2019-02-27] MEDS: CELECOXIB 200MG CAPSULE PO SCH ×2 (08:39→17:56)
[2019-02-27] MEDS: DOCUSATE SODIUM 100MG CAPSULE PO SCH ×2 (08:39→17:56)
[2019-02-27 09:06] LABS: ALDOLASE 4.3 U/L (3.3-10.3)
[2019-02-27 14:18] LABS: ANA IFA Negative (.)
[2019-02-27 20:00] VITALS: BP 113/77
[2019-02-27] MEDS: POLYETHYLENE GLYCOL 3350 (17GM) 1 DOSE PACK PO SCH (21:00)
[2019-02-28] MEDS: HYDROCODONE/APAP 7.5/325MG 1 TAB TABLET PO PRN ×2 (05:56→17:07)
[2019-02-28] MEDS: POLYVINYL ALCOHOL OPHTH DROPS 15ML BOTHEYE PRN ×2 (05:56→22:28)
[2019-02-28] MEDS: PANTOPRAZOLE 40MG DR TABLET PO SCH (05:56)
[2019-02-28 08:00] VITALS: BP 111/82
[2019-02-28 08:28] VITALS: BP 111/82
[2019-02-28] MEDS: DOCUSATE SODIUM 100MG CAPSULE PO SCH ×2 (09:14→17:07)
[2019-02-28] MEDS: PREDNISONE 20MG TABLET PO SCH (09:14)
[2019-02-28] MEDS: CYANOCOBALAMIN 1000MCG/ML VIAL IM SCH (09:14)
[2019-02-28] MEDS: CELECOXIB 200MG CAPSULE PO SCH ×2 (09:14→17:07)
[2019-02-28 14:07] LABS: BASOPHILS % 0.4 % (0.0-2.0); EOSINOPHILS % 0.1 % (0.0-5.0); HEMATOCRIT. 43.3 % (42.0-52.0); LYMPHOCYTES % 7.8 % (20.0-50.0); MEAN CORPUSCULAR HEMOGLOBIN 31.4 pg (28.0-32.0); MEAN CORPUSCULAR VOLUME 90.5 fL (80.0-94.0); MEAN PLATELET VOLUME 6.2 fl (7.4-10.4); MONOCYTES % 3.6 % (2.0-8.0); NEUTROPHILS % 88.1 % (40.0-76.0); PLATELET 654 x1000/uL (130-400); RED BLOOD CELL COUNT 4.79 mill/uL (4.7-6.1); RED CELL DISTRIBUTION WIDTH 13.6 % (11.6-14.6)
[2019-02-28 14:10] LABS: CHLORIDE 98 mEq/L (98-107)
[2019-02-28 20:00] VITALS: BP 117/79
[2019-02-28] MEDS: POLYETHYLENE GLYCOL 3350 (17GM) 1 DOSE PACK PO SCH (21:00)
[2019-03-01] MEDS: POLYVINYL ALCOHOL OPHTH DROPS 15ML BOTHEYE PRN ×2 (04:49→21:52)
[2019-03-01] MEDS: PANTOPRAZOLE 40MG DR TABLET PO SCH (06:01)
[2019-03-01] MEDS: HYDROCODONE/APAP 7.5/325MG 1 TAB TABLET PO PRN ×2 (06:24→20:37)
[2019-03-01 08:00] VITALS: BP 119/81
[2019-03-01] MEDS: PREDNISONE 20MG TABLET PO SCH (08:11)
[2019-03-01] MEDS: CYANOCOBALAMIN 1000MCG/ML VIAL IM SCH (08:14)
[2019-03-01] MEDS: DOCUSATE SODIUM 100MG CAPSULE PO SCH ×2 (08:15→17:12)
[2019-03-01] MEDS: CELECOXIB 200MG CAPSULE PO SCH ×2 (08:15→17:12)
[2019-03-01 13:08] LABS: HIV SCREEN 4G Non Reactive (Non Reactive)
[2019-03-01 20:00] VITALS: BP 126/81
[2019-03-01] MEDS: POLYETHYLENE GLYCOL 3350 (17GM) 1 DOSE PACK PO SCH (20:33)
[2019-03-02] MEDS: PANTOPRAZOLE 40MG DR TABLET PO SCH (06:20)
[2019-03-02] MEDS: HYDROCODONE/APAP 7.5/325MG 1 TAB TABLET PO PRN (08:23)
[2019-03-02] MEDS: CELECOXIB 200MG CAPSULE PO SCH ×2 (09:16→16:12)
[2019-03-02] MEDS: CYANOCOBALAMIN 1000MCG/ML VIAL IM SCH (09:16)
[2019-03-02] MEDS: DOCUSATE SODIUM 100MG CAPSULE PO SCH ×2 (09:16→16:12)
[2019-03-02] MEDS: PREDNISONE 20MG TABLET PO SCH (09:16)
[2019-03-02 10:35] LABS: BASOPHILS % 0.4 % (0.0-2.0); EOSINOPHILS % 0.4 % (0.0-5.0); HEMATOCRIT. 42.4 % (42.0-52.0); HEMOGLOBIN. 14.7 g/dL (14.0-18.0); LYMPHOCYTES % 14.2 % (20.0-50.0); MEAN CORPUSCULAR HEMOGLOBIN 31.3 pg (28.0-32.0); MEAN CORPUSCULAR VOLUME 90.2 fL (80.0-94.0); MEAN PLATELET VOLUME 5.8 fl (7.4-10.4); MONOCYTES % 12.6 % (2.0-8.0); NEUTROPHILS % 72.4 % (40.0-76.0); PLATELET 593 x1000/uL (130-400); RED CELL DISTRIBUTION WIDTH 13.3 % (11.6-14.6)
[2019-03-02 10:49] LABS: CHLORIDE 100 mEq/L (98-107)
[2019-03-02] MEDS ORDERED: LORAZEPAM 0.5MG TABLET PO PRN (12:45)
[2019-03-02] MEDS ORDERED: IPRATROPIUM/ALBUTEROL 0.5-3(2.5)MG/3ML NEB HHN PRN (12:45)
[2019-03-02 15:02] LABS: BG BASE EXCESS 2.4 mmol/L (-2.0-2.0); BG CARBOXYHEMOGLOBIN 0.4 % (0.5-1.5); BG FRACTION INSPIRED OXYGEN 21; BG HCO3 ACT 27.5 mmol/L (22.0-26.0); BG METHEMOGLOBIN 0.4 % (0.0-1.5); BG OXYHEMOGLOBIN 96.2 % (94.0-97.0); BG PCO2 44.2 mmHg (35.0-45.0); BG PH 7.412 (7.350-7.450); BG PO2 94.3 mmHg (75.0-100.0); BG SAMPLE SITE LEFT BRACHIAL; BG TOTAL HEMOGLOBIN 14.8 g/dL (12.0-18.0); BG VENT MODE ROOM AIR
[2019-03-02] MEDS ORDERED: HYDROCODONE/APAP 7.5/325MG 1 TAB TABLET PO PRN (18:34)
[2019-03-02 20:00] VITALS: BP 120/84
[2019-03-02] MEDS ORDERED: LIDOCAINE HCL 1% 10 MG/ML 10ML VIAL INJ NR (20:30)
[2019-03-02] MEDS ORDERED: METHYLPREDNISOLONE ACETATE 40MG/ML VIAL IM NR (20:30)
[2019-03-02] MEDS ORDERED: LIDOCAINE HCL/PF 1% 10 MG/ML 5ML VIAL IJ NR (20:33)
[2019-03-02] MEDS: POLYETHYLENE GLYCOL 3350 (17GM) 1 DOSE PACK PO SCH (21:00)
[2019-03-03] MEDS: POLYVINYL ALCOHOL OPHTH DROPS 15ML BOTHEYE PRN (05:16)
[2019-03-03] MEDS: PANTOPRAZOLE 40MG DR TABLET PO SCH (07:00)
[2019-03-03 08:00] VITALS: BP 121/84
[2019-03-03] MEDS: CYANOCOBALAMIN 1000MCG/ML VIAL IM SCH (09:00)
[2019-03-03] MEDS: PREDNISONE 20MG TABLET PO SCH (09:00)
[2019-03-03] MEDS: CELECOXIB 200MG CAPSULE PO SCH ×2 (09:00→16:01)
[2019-03-03] MEDS: DOCUSATE SODIUM 100MG CAPSULE PO SCH ×2 (09:00→16:02)
[2019-03-03 20:00] VITALS: BP 121/92
[2019-03-03] MEDS: POLYETHYLENE GLYCOL 3350 (17GM) 1 DOSE PACK PO SCH (21:00)
[2019-03-04] MEDS: PANTOPRAZOLE 40MG DR TABLET PO SCH (05:47)
[2019-03-04 07:39] LABS: BASOPHILS % 0.3 % (0.0-2.0); EOSINOPHILS % 0.2 % (0.0-5.0); HEMOGLOBIN. 14.9 g/dL (14.0-18.0); LYMPHOCYTES % 10.5 % (20.0-50.0); MEAN CORPUSCULAR HEMOGLOBIN 31.2 pg (28.0-32.0); MEAN CORPUSCULAR VOLUME 90.3 fL (80.0-94.0); MEAN PLATELET VOLUME 5.9 fl (7.4-10.4); MONOCYTES % 8.9 % (2.0-8.0); NEUTROPHILS % 80.1 % (40.0-76.0); PLATELET 654 x1000/uL (130-400); RED BLOOD CELL COUNT 4.76 mill/uL (4.7-6.1); RED CELL DISTRIBUTION WIDTH 13.2 % (11.6-14.6)
[2019-03-04 08:34] LABS: CHLORIDE 98 mEq/L (98-107)
[2019-03-04] MEDS: DOCUSATE SODIUM 100MG CAPSULE PO SCH (10:26)
[2019-03-04] MEDS: CELECOXIB 200MG CAPSULE PO SCH (10:26)
[2019-03-04] MEDS: PREDNISONE 20MG TABLET PO SCH (10:26)
[2019-03-04 14:24] VITALS: BP 126/69
== END 2019-03-04 17:15 | disposition home health service (06) | DRG 551 ==
PROVIDERS: ADMIT Physical Medicine & Rehabilitation Spinal Cord Injury Medicine; ATTEND Internal Medicine
PROC: 3E0233Z Introduction of Anti-inflammatory into Muscle, Percutaneous Approach (ICD-10-PCS; principal; 2019-03-02)
PROC: 3E0233Z Introduction of Anti-inflammatory into Muscle, Percutaneous Approach (ICD-10-PCS; 2019-03-02)
PROC: 3E023BZ Introduction of Anesthetic Agent into Muscle, Percutaneous Approach (ICD-10-PCS; 2019-03-02)
PROC: 3E023BZ Introduction of Anesthetic Agent into Muscle, Percutaneous Approach (ICD-10-PCS; 2019-03-02)
DX: M48.07 Spinal stenosis, lumbosacral region (principal); G82.50 Quadriplegia, unspecified; J96.00 Acute respiratory failure, unspecified whether with hypoxia or hypercapnia; E46 Unspecified protein-calorie malnutrition; G95.9 Disease of spinal cord, unspecified; M47.817 Spondylosis without myelopathy or radiculopathy, lumbosacral region; G83.9 Paralytic syndrome, unspecified; G89.4 Chronic pain syndrome; R53.81 Other malaise; D64.9 Anemia, unspecified; R26.9 Unspecified abnormalities of gait and mobility; K59.00 Constipation, unspecified; R73.9 Hyperglycemia, unspecified; D47.3 Essential (hemorrhagic) thrombocythemia; T38.0X5A Adverse effect of glucocorticoids and synthetic analogues, initial encounter; M43.17 Spondylolisthesis, lumbosacral region; R20.0 Anesthesia of skin; E55.9 Vitamin D deficiency, unspecified; M54.2 Cervicalgia; M75.102 Unspecified rotator cuff tear or rupture of left shoulder, not specified as traumatic; M75.101 Unspecified rotator cuff tear or rupture of right shoulder, not specified as traumatic; F06.31 Mood disorder due to known physiological condition with depressive features; M19.90 Unspecified osteoarthritis, unspecified site; M77.8 Other enthesopathies, not elsewhere classified; D72.810 Lymphocytopenia; M62.81 Muscle weakness (generalized); F41.9 Anxiety disorder, unspecified; R01.1 Cardiac murmur, unspecified; I10 Essential (primary) hypertension; E53.8 Deficiency of other specified B group vitamins; Z53.20 Procedure and treatment not carried out because of patient's decision for unspecified reasons; Z82.49 Family history of ischemic heart disease and other diseases of the circulatory system; Z68.20 Body mass index [BMI] 20.0-20.9, adult; Z98.1 Arthrodesis status; Z86.73 Personal history of transient ischemic attack (TIA), and cerebral infarction without residual deficits; Z23 Encounter for immunization
CPT/HCPCS: 36415; 36600; 71045; 72141; 73220; 73221; 80048; 82085; 82375; 82550; 82805; 84134; 84439; 85651; 86225; 86235; 86256; 86431; 87389; 92523; 92610; 93970; 97110; 97116; 97127; 97162; 97166; 97530; 97535; G0515; J1030; J3420; J3490; J7512

== ENCOUNTER 2019-03-04 20:46 | Inpatient (IN) | payer MEDICARE, MEDICAID ==
[~2019-03-04] VITALS: Ht 167.6 cm; Wt 51.7 kg
[2019-03-04] MEDS ORDERED: SODIUM CHLORIDE 0.9% 1,000 ML IV ONE (21:47)
[2019-03-04 22:06] LABS: HEMATOCRIT. 47.1 % (42.0-52.0); HEMOGLOBIN. 16.2 g/dL (14.0-18.0); MEAN CORPUSCULAR HEMOGLOBIN 31.1 pg (28.0-32.0); MEAN CORPUSCULAR VOLUME 90.1 fL (80.0-94.0); MEAN PLATELET VOLUME 6.2 fl (7.4-10.4); PLATELET 678 x1000/uL (130-400); RED BLOOD CELL COUNT 5.23 mill/uL (4.7-6.1); RED CELL DISTRIBUTION WIDTH 13.3 % (11.6-14.6)
[2019-03-04 22:07] LABS: CHLORIDE 92 mEq/L (98-107)
[2019-03-04 22:09] LABS: PROTHROMBIN TIME 10.8 sec (9.6-11.0)
[2019-03-04 22:20] LABS: PLATELET ESTIMATE INCREASED
[2019-03-05] VITALS (7 sets, daily range): BP systolic 122–153; BP diastolic 85–103
[2019-03-05 00:07] LABS: CLARITY URINE CLEAR (CLEAR); COLOR URINE YELLOW (YELLOW); KETONES URINE NEGATIVE (NEGATIVE); LEUKOCYTE ESTERASE URINE NEGATIVE (NEGATIVE); NITRITE URINE NEGATIVE (NEGATIVE); OCCULT BLOOD URINE TRACE (NEGATIVE); PH URINE 6.5 (4.5-8.0); PROTEIN URINE NEGATIVE (NEGATIVE); SPECIFIC GRAVITY URINE 1.016 (1.005-1.030); UROBILINOGEN URINE 0.2 E.U./dL (0.2-1.0)
[2019-03-05] MEDS ORDERED: HYDRALAZINE 20MG/ML VIAL IV PRN (00:45)
[2019-03-05] MEDS ORDERED: ONDANSETRON HCL 4MG/2ML INJ IV PRN (00:45)
[2019-03-05] MEDS ORDERED: LEVOFLOXACIN 500MG PREMIX 100 ML IV SCH ×2 (00:45→06:00)
[2019-03-05] MEDS ORDERED: HYDROMORPHONE HCL/PF 2MG/ML CPJ IV PRN (00:45)
[2019-03-05] MEDS ORDERED: DIPHENHYDRAMINE 50MG/ML VIAL IV PRN (00:45)
[2019-03-05] MEDS ORDERED: IPRATROPIUM/ALBUTEROL 0.5-3(2.5)MG/3ML NEB INH PRN (00:45)
[2019-03-05] MEDS ORDERED: NA PHOS,M-B/NA PHOS,DI-BA ENEMA 118ML PR PRN (00:45)
[2019-03-05] MEDS ORDERED: ACETAMINOPHEN 325MG TABLET PO PRN (00:45)
[2019-03-05] MEDS ORDERED: LORAZEPAM 2MG/ML CPJ IV PRN (00:45)
[2019-03-05] MEDS ORDERED: DOCUSATE SODIUM 100MG CAPSULE PO PRN (00:45)
[2019-03-05] MEDS ORDERED: IOHEXOL-350 100 ML BOTTLE ONE (00:56)
[2019-03-05] MEDS ORDERED: LEVOFLOXACIN 500MG PREMIX 100 ML IV NR (05:00)
[2019-03-05] MEDS: SODIUM CHLORIDE 0.9% INJ 3ML FLUSH IVF SCH ×3 (06:54→21:40)
[2019-03-05] MEDS: ASPIRIN 81MG EC TABLET PO SCH (08:31)
[2019-03-05] MEDS: ENOXAPARIN 40MG/0.4ML SYR SUBCUT SCH (08:32)
[2019-03-05 10:51] LABS: CREATINE KINASE 54 IU/L (39-308)
[2019-03-05 10:52] LABS: CREATINE KINASE MB FRACTION 1.8 ng/mL (0.5-3.6)
[2019-03-05] MEDS: ALPRAZOLAM 0.25 MG TABLET PO SCH ×2 (12:55→12:57)
[2019-03-05] MEDS: LEVOFLOXACIN 500MG TABLET PO SCH (12:55)
[2019-03-05] MEDS: BUDESONIDE 0.5MG/2ML NEB HHN SCH ×3 (13:56→21:46)
[2019-03-05] MEDS: IPRATROPIUM/ALBUTEROL 0.5-3(2.5)MG/3ML NEB HHN SCH ×3 (13:56→21:47)
[2019-03-05] MEDS: GUAIFENESIN 200MG/10ML SUGAR FREE UDC PO PRN (17:23)
[2019-03-06] VITALS: BP 131/90
[2019-03-06] MEDS: HYDROCODONE/ACETAMINOPHEN 5/325MG TABLET PO PRN (00:25)
[2019-03-06] MEDS: IPRATROPIUM/ALBUTEROL 0.5-3(2.5)MG/3ML NEB HHN SCH ×4 (03:52→21:11)
[2019-03-06 04:00] VITALS: BP 141/89
[2019-03-06] MEDS: GUAIFENESIN 200MG/10ML SUGAR FREE UDC PO PRN (05:41)
[2019-03-06] MEDS: SODIUM CHLORIDE 0.9% INJ 3ML FLUSH IVF SCH ×3 (05:43→21:19)
[2019-03-06] MEDS: ALPRAZOLAM 0.25 MG TABLET PO SCH ×3 (05:43→21:18)
[2019-03-06 08:19] VITALS: BP 163/94
[2019-03-06] MEDS: BUDESONIDE 0.5MG/2ML NEB HHN SCH ×2 (08:39→21:12)
[2019-03-06] MEDS: ENOXAPARIN 40MG/0.4ML SYR SUBCUT SCH (09:00)
[2019-03-06] MEDS: ASPIRIN 81MG EC TABLET PO SCH (09:00)
[2019-03-06] MEDS: MAGNESIUM/ALUMINUM HYDROXIDE/SIMETHICONE 30ML UDC PO PRN ×2 (11:08→18:27)
[2019-03-06] MEDS: LEVOFLOXACIN 500MG TABLET PO SCH (11:08)
[2019-03-06 12:49] VITALS: BP 147/89
[2019-03-06 16:15] VITALS: BP 151/90
[2019-03-06 20:00] VITALS: BP 153/98
[2019-03-06] MEDS: CLONIDINE 0.1MG TABLET PO PRN (21:19)
[2019-03-07] VITALS (77 sets, daily range): BP systolic 61–152; BP diastolic 40–114
[2019-03-07] MEDS: IPRATROPIUM/ALBUTEROL 0.5-3(2.5)MG/3ML NEB HHN SCH ×4 (00:50→20:03)
[2019-03-07 03:46] LABS: BG BASE EXCESS 9.4 mmol/L (-2.0-2.0); BG CARBOXYHEMOGLOBIN 0.3 % (0.5-1.5); BG DEOXYHEMOGLOBIN 0.7 % (0.0-5.0); BG FRACTION INSPIRED OXYGEN 40; BG HCO3 ACT 44.4 mmol/L (22.0-26.0); BG METHEMOGLOBIN 0.5 % (0.0-1.5); BG OXYGEN SATURATION 99.3 % (92.0-98.5); BG OXYHEMOGLOBIN 98.5 % (94.0-97.0); BG PCO2 128.2 mmHg (35.0-45.0); BG PH 7.157 (7.350-7.450); BG PO2 215.1 mmHg (75.0-100.0); BG SAMPLE SITE RIGHT RADIAL; BG TOTAL HEMOGLOBIN 16.1 g/dL (12.0-18.0)
[2019-03-07] MEDS ORDERED: NALOXONE HCL 0.4 MG/ML 1ML VIAL IV ONE (04:00)
[2019-03-07] MEDS ORDERED: VECURONIUM BROMIDE 10 MG/VIAL IV ONE (04:20)
[2019-03-07 05:35] LABS: HEMATOCRIT. 46.2 % (42.0-52.0); HEMOGLOBIN. 16.1 g/dL (14.0-18.0); MEAN CORPUSCULAR HEMOGLOBIN 31.6 pg (28.0-32.0); MEAN CORPUSCULAR VOLUME 90.5 fL (80.0-94.0); PLATELET 716 x1000/uL (130-400); RED BLOOD CELL COUNT 5.11 mill/uL (4.7-6.1)
[2019-03-07 05:40] LABS: BG BASE EXCESS 7.9 mmol/L (-2.0-2.0); BG CARBOXYHEMOGLOBIN 0.1 % (0.5-1.5); BG DEOXYHEMOGLOBIN 0.7 % (0.0-5.0); BG FRACTION INSPIRED OXYGEN 40; BG HCO3 ACT 35.7 mmol/L (22.0-26.0); BG METHEMOGLOBIN 0.4 % (0.0-1.5); BG OXYGEN SATURATION 99.3 % (92.0-98.5); BG OXYHEMOGLOBIN 98.8 % (94.0-97.0); BG PCO2 61.9 mmHg (35.0-45.0); BG PH 7.379 (7.350-7.450); BG SAMPLE SITE RIGHT RADIAL; BG TIDAL VOLUME(mL) 450 mL; BG TOTAL HEMOGLOBIN 16.3 g/dL (12.0-18.0); BG VENT MODE VENT - A/C; BG VENT RATE 14 set
[2019-03-07] MEDS: SODIUM CHLORIDE 0.9% INJ 3ML FLUSH IVF SCH ×3 (06:00→22:00)
[2019-03-07] MEDS ORDERED: PROPOFOL 10MG/ML 100ML 100 ML IV PRN (06:00)
[2019-03-07] MEDS: NOREPINEPHRINE 4 MG in DEXT 5% WATER 246 ML IV PRN (06:27)
[2019-03-07] MEDS ORDERED: SODIUM CHLORIDE 10% FOR INH 15ML VIAL NEB INH NR (06:30)
[2019-03-07 06:45] LABS: CHLORIDE 86 mEq/L (98-107)
[2019-03-07 07:06] LABS: CREATINE KINASE MB FRACTION 2.3 ng/mL (0.5-3.6)
[2019-03-07 07:07] LABS: T4 FREE 0.97 ng/dL (0.76-1.46)
[2019-03-07 07:08] LABS: CREATINE KINASE 39 IU/L (39-308)
[2019-03-07] MEDS: BUDESONIDE 0.5MG/2ML NEB HHN SCH (08:04)
[2019-03-07 09:41] LABS: PLATELET ESTIMATE NORMAL
[2019-03-07] MEDS: ASPIRIN 81MG EC TABLET PO SCH (09:49)
[2019-03-07] MEDS: ENOXAPARIN 40MG/0.4ML SYR SUBCUT SCH (09:51)
[2019-03-07] MEDS ORDERED: SODIUM CHLORIDE 0.9% 1,000 ML IV NR ×2 (11:00→16:45)
[2019-03-07] MEDS: HYDROCODONE/ACETAMINOPHEN 5/325MG TABLET PO PRN (11:38)
[2019-03-07] MEDS: LEVOFLOXACIN 500MG TABLET PO SCH (11:42)
[2019-03-07] MEDS ORDERED: SODIUM CHLORIDE 0.9% 1,000 ML IV SCH (11:45)
[2019-03-07] MEDS: METHYLPREDNISOLONE SOD SUCC 40 MG/ML VIAL IV SCH ×2 (13:28→20:46)
[2019-03-07] MEDS: MORPHINE SULFATE 4 MG/ML CPJ (NOT FOR IM USE) IV PRN (14:07)
[2019-03-08] VITALS (92 sets, daily range): BP systolic 80–141; BP diastolic 38–96
[2019-03-08] MEDS: NOREPINEPHRINE 4 MG in DEXT 5% WATER 246 ML IV PRN (01:16)
[2019-03-08] MEDS: IPRATROPIUM/ALBUTEROL 0.5-3(2.5)MG/3ML NEB HHN SCH ×4 (01:45→21:35)
[2019-03-08] MEDS: METHYLPREDNISOLONE SOD SUCC 40 MG/ML VIAL IV SCH ×2 (03:29→16:06)
[2019-03-08 05:49] LABS: HEMATOCRIT. 37.8 % (42.0-52.0); HEMOGLOBIN. 13.3 g/dL (14.0-18.0); MEAN CORPUSCULAR HEMOGLOBIN 31.4 pg (28.0-32.0); MEAN PLATELET VOLUME 6.3 fl (7.4-10.4); PLATELET 569 x1000/uL (130-400); RED BLOOD CELL COUNT 4.25 mill/uL (4.7-6.1); RED CELL DISTRIBUTION WIDTH 13.2 % (11.6-14.6)
[2019-03-08 06:12] LABS: CHLORIDE 97 mEq/L (98-107)
[2019-03-08] MEDS: SODIUM CHLORIDE 0.9% INJ 3ML FLUSH IVF SCH ×3 (06:23→21:01)
[2019-03-08 06:40] LABS: PHOSPHORUS 2.1 mg/dL (2.5-4.9)
[2019-03-08 07:52] LABS: BG BASE EXCESS 6.4 mmol/L (-2.0-2.0); BG CARBOXYHEMOGLOBIN 0.3 % (0.5-1.5); BG DEOXYHEMOGLOBIN 0.7 % (0.0-5.0); BG HCO3 ACT 30.7 mmol/L (22.0-26.0); BG METHEMOGLOBIN 0.4 % (0.0-1.5); BG OXYGEN SATURATION 99.3 % (92.0-98.5); BG OXYHEMOGLOBIN 98.6 % (94.0-97.0); BG PCO2 42.7 mmHg (35.0-45.0); BG PH 7.475 (7.350-7.450); BG PO2 215.9 mmHg (75.0-100.0); BG SAMPLE SITE RIGHT RADIAL; BG TIDAL VOLUME(mL) 450 mL; BG TOTAL HEMOGLOBIN 13.7 g/dL (12.0-18.0); BG VENT MODE VENT - A/C; BG VENT RATE 16 set
[2019-03-08 08:52] LABS: PLATELET ESTIMATE INCREASED
[2019-03-08] MEDS: ASPIRIN 81MG EC TABLET PO SCH (09:14)
[2019-03-08] MEDS: ENOXAPARIN 40MG/0.4ML SYR SUBCUT SCH (09:15)
[2019-03-08] MEDS: LEVOFLOXACIN 500MG TABLET PO SCH (10:15)
[2019-03-08] MEDS: HYDROCODONE/ACETAMINOPHEN 5/325MG TABLET PO PRN ×2 (10:16→14:45)
[2019-03-08] MEDS ORDERED: DEXT 5%/0.9% NACL 1,000 ML IV ONE (10:45)
[2019-03-08] MEDS ORDERED: DEXTROSE 50% WATER 50ML SYRINGE IV PRN (10:45)
[2019-03-08] MEDS ORDERED: SODIUM CHLORIDE 0.9% 1,000 ML IV ONE ×2 (10:45)
[2019-03-08] MEDS: BLOOD SUGAR DIAGNOSTIC STRIP TEST SCH ×3 (11:40→20:48)
[2019-03-08] MEDS: PANTOPRAZOLE SODIUM 40 MG/VIAL IV SCH (11:40)
[2019-03-08] MEDS: INSULIN LISPRO 100 UNITS/ML SUBCUT SCH ×4 (12:00→21:00)
[2019-03-08 13:05] LABS: BG BASE EXCESS 3.5 mmol/L (-2.0-2.0); BG CARBOXYHEMOGLOBIN 0.3 % (0.5-1.5); BG CPAP (cmH2O) 0 cm(H2O); BG METHEMOGLOBIN 0.5 % (0.0-1.5); BG OXYHEMOGLOBIN 98.2 % (94.0-97.0); BG PCO2 47.5 mmHg (35.0-45.0); BG PH 7.403 (7.350-7.450); BG PO2 197.7 mmHg (75.0-100.0); BG SAMPLE SITE RIGHT RADIAL; BG TOTAL HEMOGLOBIN 13.1 g/dL (12.0-18.0); BG VENT MODE VENT - CPAP
[2019-03-09] VITALS (77 sets, daily range): BP systolic 105–180; BP diastolic 65–124
[2019-03-09] MEDS: IPRATROPIUM/ALBUTEROL 0.5-3(2.5)MG/3ML NEB HHN SCH ×4 (02:47→20:23)
[2019-03-09 05:51] LABS: HEMOGLOBIN. 13.1 g/dL (14.0-18.0); MEAN CORPUSCULAR HEMOGLOBIN 31.3 pg (28.0-32.0); MEAN CORPUSCULAR VOLUME 90.7 fL (80.0-94.0); MEAN PLATELET VOLUME 6.3 fl (7.4-10.4); PLATELET 451 x1000/uL (130-400); RED BLOOD CELL COUNT 4.19 mill/uL (4.7-6.1); RED CELL DISTRIBUTION WIDTH 13.3 % (11.6-14.6)
[2019-03-09 05:54] LABS: CHLORIDE 103 mEq/L (98-107)
[2019-03-09] MEDS: INSULIN LISPRO 100 UNITS/ML SUBCUT SCH ×3 (06:00→17:08)
[2019-03-09] MEDS: BLOOD SUGAR DIAGNOSTIC STRIP TEST SCH ×3 (06:35→17:08)
[2019-03-09] MEDS: SODIUM CHLORIDE 0.9% INJ 3ML FLUSH IVF SCH ×3 (06:35→22:00)
[2019-03-09] MEDS: METHYLPREDNISOLONE SOD SUCC 40 MG/ML VIAL IV SCH (08:34)
[2019-03-09] MEDS: ASPIRIN 81MG EC TABLET PO SCH (08:34)
[2019-03-09] MEDS: PANTOPRAZOLE SODIUM 40 MG/VIAL IV SCH (08:34)
[2019-03-09] MEDS: HYDROCODONE/ACETAMINOPHEN 5/325MG TABLET PO PRN (08:35)
[2019-03-09] MEDS: ENOXAPARIN 40MG/0.4ML SYR SUBCUT SCH (09:00)
[2019-03-09 09:36] LABS: BG BASE EXCESS 2.9 mmol/L (-2.0-2.0); BG CARBOXYHEMOGLOBIN 0.3 % (0.5-1.5); BG FRACTION INSPIRED OXYGEN 40; BG METHEMOGLOBIN 0.6 % (0.0-1.5); BG OXYHEMOGLOBIN 98.1 % (94.0-97.0); BG PCO2 39.5 mmHg (35.0-45.0); BG PH 7.452 (7.350-7.450); BG PO2 212.8 mmHg (75.0-100.0); BG PRESSURE SUPPORT 8; BG SAMPLE SITE RIGHT RADIAL; BG TOTAL HEMOGLOBIN 13.3 g/dL (12.0-18.0); BG VENT MODE VENT - CPAP
[2019-03-09 10:21] LABS: PLATELET ESTIMATE INCREASED
[2019-03-09] MEDS: CLONIDINE 0.1MG TABLET PO PRN (11:08)
[2019-03-09] MEDS: LEVOFLOXACIN 500MG TABLET PO SCH (11:08)
[2019-03-09] MEDS: MORPHINE SULFATE 4 MG/ML CPJ (NOT FOR IM USE) IV PRN (15:23)
[2019-03-09 16:46] LABS: PHOSPHORUS 3.9 mg/dL (2.5-4.9)
[2019-03-09 17:00] LABS: CARCINO EMBRYONIC ANTIGEN 1.4 ng/ml; PROSTRATE SPECIFIC AG TOTAL 1.28 ng/mL (0.0-4.0)
[2019-03-09] MEDS: DEXAMETHASONE 4MG/ML 1ML VIAL IV SCH ×2 (17:16→23:59)
[2019-03-09] MEDS: POLYVINYL ALCOHOL OPHTH DROPS 15ML BOTHEYE SCH ×2 (17:17→23:59)
[2019-03-10] VITALS (37 sets, daily range): BP systolic 127–179; BP diastolic 77–108
[2019-03-10] MEDS: INSULIN LISPRO 100 UNITS/ML SUBCUT SCH ×4 (00:23→17:25)
[2019-03-10] MEDS: POLYVINYL ALCOHOL OPHTH DROPS 15ML BOTHEYE SCH ×4 (00:26→17:29)
[2019-03-10 05:31] LABS: HEMOGLOBIN. 14.3 g/dL (14.0-18.0); MEAN CORPUSCULAR HEMOGLOBIN 31.4 pg (28.0-32.0); MEAN CORPUSCULAR VOLUME 90.1 fL (80.0-94.0); MEAN PLATELET VOLUME 6.5 fl (7.4-10.4); PLATELET 475 x1000/uL (130-400); RED BLOOD CELL COUNT 4.55 mill/uL (4.7-6.1); RED CELL DISTRIBUTION WIDTH 13.7 % (11.6-14.6)
[2019-03-10 05:41] LABS: CHLORIDE 98 mEq/L (98-107)
[2019-03-10] MEDS: SODIUM CHLORIDE 0.9% INJ 3ML FLUSH IVF SCH ×3 (06:00→22:00)
[2019-03-10] MEDS: DEXAMETHASONE 4MG/ML 1ML VIAL IV SCH ×3 (06:44→17:28)
[2019-03-10] MEDS: BLOOD SUGAR DIAGNOSTIC STRIP TEST SCH ×4 (06:57→17:25)
[2019-03-10] MEDS: ASPIRIN 81MG EC TABLET PO SCH (08:07)
[2019-03-10] MEDS: PANTOPRAZOLE SODIUM 40 MG/VIAL IV SCH (08:23)
[2019-03-10] MEDS: ENOXAPARIN 40MG/0.4ML SYR SUBCUT SCH (08:23)
[2019-03-10] MEDS: IPRATROPIUM/ALBUTEROL 0.5-3(2.5)MG/3ML NEB HHN SCH ×2 (08:24→21:35)
[2019-03-10] MEDS ORDERED: METHYLPREDNISOLONE SOD SUCC 40 MG/ML VIAL IV SCH (09:00)
[2019-03-10] MEDS: LEVOFLOXACIN 500MG TABLET PO SCH (11:46)
[2019-03-10 13:19] LABS: PLATELET ESTIMATE INCREASED
[2019-03-10] MEDS: QUETIAPINE FUMARATE 25MG TABLET PO SCH (21:15)
[2019-03-11] VITALS (49 sets, daily range): BP systolic 83–158; BP diastolic 60–98
[2019-03-11] MEDS: POLYVINYL ALCOHOL OPHTH DROPS 15ML BOTHEYE SCH ×4 (00:03→18:00)
[2019-03-11] MEDS: DEXAMETHASONE 4MG/ML 1ML VIAL IV SCH ×4 (00:04→18:00)
[2019-03-11] MEDS: BLOOD SUGAR DIAGNOSTIC STRIP TEST SCH ×4 (00:10→18:00)
[2019-03-11] MEDS: INSULIN LISPRO 100 UNITS/ML SUBCUT SCH ×4 (00:27→18:00)
[2019-03-11 01:11] LABS: BG BASE EXCESS 12.9 mmol/L (-2.0-2.0); BG CARBOXYHEMOGLOBIN 0.6 % (0.5-1.5); BG DEOXYHEMOGLOBIN 3.1 % (0.0-5.0); BG FRACTION INSPIRED OXYGEN 24; BG HCO3 ACT 48.1 mmol/L (22.0-26.0); BG METHEMOGLOBIN 0.5 % (0.0-1.5); BG OXYGEN SATURATION 96.9 % (92.0-98.5); BG OXYHEMOGLOBIN 95.8 % (94.0-97.0); BG PCO2 132.8 mmHg (35.0-45.0); BG PH 7.177 (7.350-7.450); BG SAMPLE SITE RIGHT RADIAL; BG TOTAL HEMOGLOBIN 15.8 g/dL (12.0-18.0); BG VENT MODE NASAL CANNULA
[2019-03-11] MEDS: IPRATROPIUM/ALBUTEROL 0.5-3(2.5)MG/3ML NEB HHN SCH ×2 (01:44→08:20)
[2019-03-11 02:49] LABS: BG BASE EXCESS 11.6 mmol/L (-2.0-2.0); BG BILEVEL POS AIRWAY PRESSURE 15/5; BG CARBOXYHEMOGLOBIN 0.5 % (0.5-1.5); BG FRACTION INSPIRED OXYGEN 40; BG HCO3 ACT 41.5 mmol/L (22.0-26.0); BG METHEMOGLOBIN 0.4 % (0.0-1.5); BG OXYHEMOGLOBIN 96.1 % (94.0-97.0); BG PCO2 79.9 mmHg (35.0-45.0); BG PH 7.333 (7.350-7.450); BG PO2 95.1 mmHg (75.0-100.0); BG SAMPLE SITE RIGHT RADIAL; BG VENT MODE MASK - BIPAP
[2019-03-11] MEDS: SODIUM CHLORIDE 0.9% INJ 3ML FLUSH IVF SCH ×2 (06:00→14:00)
[2019-03-11 08:21] LABS: MEAN CORPUSCULAR HEMOGLOBIN 30.6 pg (28.0-32.0); MEAN CORPUSCULAR VOLUME 89.7 fL (80.0-94.0); MEAN PLATELET VOLUME 6.2 fl (7.4-10.4); PLATELET 468 x1000/uL (130-400); RED BLOOD CELL COUNT 4.57 mill/uL (4.7-6.1); RED CELL DISTRIBUTION WIDTH 13.1 % (11.6-14.6)
[2019-03-11 08:23] LABS: CHLORIDE 94 mEq/L (98-107)
[2019-03-11] MEDS: PANTOPRAZOLE SODIUM 40 MG/VIAL IV SCH (08:59)
[2019-03-11] MEDS: ASPIRIN 81MG EC TABLET PO SCH (08:59)
[2019-03-11] MEDS: QUETIAPINE FUMARATE 25MG TABLET PO SCH (08:59)
[2019-03-11 09:00] LABS: PLATELET ESTIMATE INCREASED
[2019-03-11] MEDS: ENOXAPARIN 40MG/0.4ML SYR SUBCUT SCH (09:00)
[2019-03-11 09:06] LABS: BG BASE EXCESS 10.9 mmol/L (-2.0-2.0); BG BILEVEL POS AIRWAY PRESSURE 15/5; BG CARBOXYHEMOGLOBIN 0.4 % (0.5-1.5); BG DEOXYHEMOGLOBIN 2.1 % (0.0-5.0); BG FRACTION INSPIRED OXYGEN 40; BG METHEMOGLOBIN 0.4 % (0.0-1.5); BG OXYGEN SATURATION 97.9 % (92.0-98.5); BG OXYHEMOGLOBIN 97.1 % (94.0-97.0); BG PH 7.484 (7.350-7.450); BG PO2 98.3 mmHg (75.0-100.0); BG SAMPLE SITE RIGHT RADIAL; BG TOTAL HEMOGLOBIN 14.2 g/dL (12.0-18.0); BG VENT MODE MASK - BIPAP; BG VENT RATE 18 set
[2019-03-11] MEDS: LEVOFLOXACIN 500MG TABLET PO SCH (12:03)
[2019-03-12 05:17] LABS: HIV SCREEN 4G Non Reactive (Non Reactive)
== END 2019-03-11 20:00 | DRG 208 ==
LOC: ER 21:07 → EDBEDREQTM 23:44 → EDBEDREQ 23:44 → 8WST 03-05 00:23 → EDBEDREQ 03-05 00:25 → EDBEDREQTM 03-05 00:25 → ENRESERV 03-05 03:15 → 8WST 03-05 04:19 → MICUSO 03-07 04:20
PROVIDERS: ADMIT Internal Medicine; ATTEND Internal Medicine
PROC: 5A1945Z Respiratory Ventilation, 24-96 Consecutive Hours (ICD-10-PCS; principal; 2019-03-07)
PROC: 0BH17EZ Insertion of Endotracheal Airway into Trachea, Via Natural or Artificial Opening (ICD-10-PCS; 2019-03-07)
PROC: 5A09357 Assistance with Respiratory Ventilation, Less than 24 Consecutive Hours, Continuous Positive Airway Pressure (ICD-10-PCS; 2019-03-11)
DX: J96.02 Acute respiratory failure with hypercapnia (principal); L89.153 Pressure ulcer of sacral region, stage 3; G82.50 Quadriplegia, unspecified; G93.41 Metabolic encephalopathy; R65.10 Systemic inflammatory response syndrome (SIRS) of non-infectious origin without acute organ dysfunction; E87.1 Hypo-osmolality and hyponatremia; E87.2 Acidosis; M47.16 Other spondylosis with myelopathy, lumbar region; E46 Unspecified protein-calorie malnutrition; Z68.1 Body mass index [BMI] 19.9 or less, adult; F41.9 Anxiety disorder, unspecified; D64.9 Anemia, unspecified; I10 Essential (primary) hypertension; I07.1 Rheumatic tricuspid insufficiency; G89.4 Chronic pain syndrome; I95.9 Hypotension, unspecified; E86.1 Hypovolemia; G90.8 Other disorders of autonomic nervous system; R26.81 Unsteadiness on feet; R01.1 Cardiac murmur, unspecified; S46.912A Strain of unspecified muscle, fascia and tendon at shoulder and upper arm level, left arm, initial encounter; S46.911A Strain of unspecified muscle, fascia and tendon at shoulder and upper arm level, right arm, initial encounter; X58.XXXA Exposure to other specified factors, initial encounter; Z86.73 Personal history of transient ischemic attack (TIA), and cerebral infarction without residual deficits; Z98.1 Arthrodesis status; Y93.89 Activity, other specified; Y92.89 Other specified places as the place of occurrence of the external cause; Y99.8 Other external cause status
CPT/HCPCS: 31500; 36415; 36600; 71045; 71275; 72141; 80048; 80061; 82105; 82375; 82378; 82550; 82553; 82805; 82962; 83036; 83605; 83735; 83880; 84100; 84134; 84145; 84153; 84439; 84443; 84484; 85379; 86300; 86301; 87389; 92610; 93005; 93306; 93970; 94002; 94003; 94640; 96360; 96361; 97110; 97162; 97164; 97166; 97168; 97530; 99285; A6261; C9113; J1100; J1200; J1650; J1815; J1956; J2270; J2920; J3490; J7030; J7040; J7042; J7060; J7131; J7620; J7626; Q9967; G0103